=== PATIENT | female | born 2000 | race Two or more races ===

== ENCOUNTER → 2024-06-30 | Outpatient (CLI) | payer MEDICAID, SELFPAY ==
--- NOTE | 2024-06-30 14:00 | XR_ITS ---
Examination: OB Transvaginal ultrasound of the pelvis, complete Technique: Transvaginal sonographic images pelvis performed using bhagat scale imaging Exam date and time: June 30, 2024 1427 hours INDICATIONS: Pelvic cramping and vaginal bleeding beginning one week ago FINDINGS: Uterus 9.6 x 5.4 x 6.1 cm pole 0.7 cm correspondences 6 weeks 3 days gestational age Cardiac motion 114 bpm No subchorionic hemorrhage Right ovary 3.5 x 3.3 cm arterial flow Left ovary 3.8 x 2.8 cm arterial flow No fluid in the cul-de-sac IMPRESSION: Viable intrauterine gestation 6 weeks 3 days.
== END | disposition home or self-care (01) ==
LOC: CDIM 13:48
PROVIDERS: PCP Physician Assistant; Referring Provider Obstetrics & Gynecology; Visit Provider Obstetrics & Gynecology
DX: O20.0 Threatened abortion (principal); Z3A.01 Less than 8 weeks gestation of pregnancy
CPT/HCPCS: 76817